=== PATIENT | female | born 1950 | race Two or more races ===

== ENCOUNTER 2017-12-02 07:51 | Outpatient (CLI) | payer OTHER | END 2017-12-02 14:57 | disposition home or self-care (01) | LOC: TOM 07:51 | DX: R10.9 Unspecified abdominal pain (principal) ==

== ENCOUNTER 2017-12-20 10:41 | Emergency (ER) | payer OTHER ==
[~2017-12-20] VITALS: Ht 152.4 cm; Wt 54.4 kg
== END 2017-12-20 17:29 | disposition home or self-care (01) ==
LOC: ER 10:41
DX: K52.9 Noninfective gastroenteritis and colitis, unspecified (principal)

== ENCOUNTER 2018-07-03 07:30 | Outpatient (CLI) | payer OTHER | END 2018-07-03 07:45 | disposition home or self-care (01) | LOC: TOM 07:30 | DX: R51 Headache (principal); G43.909 Migraine, unspecified, not intractable, without status migrainosus | CPT/HCPCS: 70460; Q9965 ==

== ENCOUNTER 2021-12-03 09:24 | Outpatient (CLI) | payer OTHER | END 2021-12-03 09:25 | disposition home or self-care (01) | LOC: NUCLEAR 09:24 | PROVIDERS: ATTEND Internal Medicine Hematology & Oncology | DX: K82.8 Other specified diseases of gallbladder (principal); K30 Functional dyspepsia | CPT/HCPCS: 78227; A9510 ==

== ENCOUNTER 2022-07-17 07:49 | Outpatient (CLI) | payer OTHER | END 2022-07-17 07:53 | disposition home or self-care (01) | LOC: MRI 07:49 | PROVIDERS: ATTEND Internal Medicine Gastroenterology | DX: K80.67 Calculus of gallbladder and bile duct with acute and chronic cholecystitis with obstruction (principal) | CPT/HCPCS: 74181 ==

== ENCOUNTER 2023-05-15 12:41 | Outpatient (CLI) | payer OTHER ==
[2023-05-16] MEDS ORDERED: TYMLOS1.56 ML (11:09)
== END 2023-05-15 12:47 | disposition home or self-care (01) ==
LOC: RAD 12:41
PROVIDERS: ATTEND Specialist
DX: C85.14 Unspecified B-cell lymphoma, lymph nodes of axilla and upper limb (principal)

== ENCOUNTER 2023-05-15 12:57 | Outpatient (CLI) | payer OTHER ==
[2023-05-16] MEDS ORDERED: TYMLOS1.56 ML (11:09)
== END 2023-05-15 13:58 | disposition home or self-care (01) ==
LOC: EKG 12:57
PROVIDERS: ATTEND Specialist
DX: C85.14 Unspecified B-cell lymphoma, lymph nodes of axilla and upper limb (principal); I10 Essential (primary) hypertension

== ENCOUNTER 2023-05-20 05:45 | Day surgery (SDC) | payer OTHER ==
[~2023-05-20 05:45] MED LIST: TYMLOS1.56 ML
== END 2023-05-20 17:10 | disposition home or self-care (01) ==
LOC: CIR.AMB 05:45
PROVIDERS: ATTEND Specialist
DX: C85.14 Unspecified B-cell lymphoma, lymph nodes of axilla and upper limb (principal); Z20.822 Contact with and (suspected) exposure to COVID-19